=== PATIENT | male | born 1995 | race Two or more races ===

== ENCOUNTER 2016-08-25 20:55 | Emergency (ER) | payer OTHER ==
[2016-08-25] MEDS ORDERED: IBUPROFEN 800 MG TABLET ONE (22:21)
[2016-08-25] MEDS ORDERED: TETANUS,DIPHTHERIA TOXOID SYRINGE IM V ONE (22:21)
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
== END 2016-08-25 22:51 | disposition home or self-care (01) ==
LOC: ED 20:55
DX: M79.672 Pain in left foot (principal); S90.812A Abrasion, left foot, initial encounter; Z23 Encounter for immunization; V09.9XXA Pedestrian injured in unspecified transport accident, initial encounter; Y93.01 Activity, walking, marching and hiking; Y92.410 Unspecified street and highway as the place of occurrence of the external cause